=== PATIENT | female | born 1995 | race Two or more races ===

== ENCOUNTER 2023-03-30 18:14 | Emergency (ER) | payer OTHER ==
[~2023-03-30] VITALS: Ht 167.6 cm; Wt 99.8 kg
[2023-03-30] MEDS ORDERED: NIFEDIPINE ER30 MG PO (19:42)
[2023-03-30 23:15] LABS: HEMATOCRIT 40.3 % (36.0-45.00); HEMOGLOBIN 13.7 g/dL (12.0-15.00); MEAN CELL VOLUME 87.2 fL (80.00-100.00); MEAN CORPUSCULAR HEMOGLOBIN 29.7 pg (27.00-32.0); PLATELET COUNT 285 K/uL (150-450); RED BLOOD COUNT 4.62 M/uL (4.00-6.00); RED CELL DISTRIBUTION WIDTH 13.8 % (11.5-14.5)
[2023-03-30 23:17] LABS: URINE APPEARANCE Clear; URINE BILIRRUBIN Negative (NEGATIVE); URINE BLOOD Negative; URINE COLOR Yellow; URINE GLUCOSE Negative (NEGATIVE); URINE LEUKOCYTE Negative; URINE NITRATE Negative; URINE PROTEIN Negative (NEGATIVE); URINE UROBILINOGEN 0.2 E.U./dl
[2023-03-30 23:21] LABS: URINE EPITHELIAL CELLS 3.6 uL (0.0-38.8); URINE RBC 12.3 uL (0.0-20.8)
[2023-03-30 23:31] LABS: URINE WBC 1.3 uL (0.0-23.2)
[2023-03-30 23:32] LABS: INR 0.98; PARTIAL THROMBOPLASTIN TIME 30.1 SECONDS (22.0-34.0); PROTHROMBIN TIME 10.3 SECONDS (9.0-11.5)
[2023-03-31] LABS: CALCIUM 9.2 mg/dL (8.5-10.1); CREATININE SERUM 0.6 mg/dL (0.55-1.02); GFR 119.04; POTASSIUM 3.58 mEq/L (3.5-5.1)
== END 2023-03-31 00:17 | disposition home or self-care (01) ==
LOC: ER 18:15
PROVIDERS: General Practice
DX: O20.9 Hemorrhage in early pregnancy, unspecified (principal); Z3A.01 Less than 8 weeks gestation of pregnancy; Z91.018 Allergy to other foods

== ENCOUNTER 2023-04-29 12:58 | Outpatient (CLI) | payer OTHER ==
[~2023-04-29 12:58] MED LIST: NIFEDIPINE ER30 MG PO
== END 2023-04-29 12:59 | disposition home or self-care (01) ==
LOC: PRENATAL 12:58
PROVIDERS: ATTEND Obstetrics & Gynecology Maternal & Fetal Medicine
DX: O36.80X0 Pregnancy with inconclusive fetal viability, not applicable or unspecified (principal); Z36.82 Encounter for antenatal screening for nuchal translucency; Z36.9 Encounter for antenatal screening, unspecified; O10.019 Pre-existing essential hypertension complicating pregnancy, unspecified trimester; O99.210 Obesity complicating pregnancy, unspecified trimester; Z3A.11 11 weeks gestation of pregnancy

== ENCOUNTER → 2023-07-06 08:12 | Outpatient (CLI) | payer OTHER | END | disposition home or self-care (01) | LOC: PRENATAL 08:12 | PROVIDERS: ATTEND Obstetrics & Gynecology Maternal & Fetal Medicine | DX: O35.3XX0 Maternal care for (suspected) damage to fetus from viral disease in mother, not applicable or unspecified (principal); O44.00 Complete placenta previa NOS or without hemorrhage, unspecified trimester; O10.019 Pre-existing essential hypertension complicating pregnancy, unspecified trimester; O99.210 Obesity complicating pregnancy, unspecified trimester; Z3A.20 20 weeks gestation of pregnancy ==

== ENCOUNTER → 2023-09-28 09:56 | Outpatient (CLI) | payer OTHER ==
[~2023-09-28 09:56] MED LIST changes: +LABETALOL HCL100 MG PO; +PRENATABS FA T1 EACH PO; +VAZALORE81 MG PO
== END | disposition home or self-care (01) ==
LOC: PRENATAL 09:56
PROVIDERS: ATTEND Obstetrics & Gynecology Maternal & Fetal Medicine
DX: O26.843 Uterine size-date discrepancy, third trimester (principal); O36.8130 Decreased fetal movements, third trimester, not applicable or unspecified; O99.213 Obesity complicating pregnancy, third trimester; O16.3 Unspecified maternal hypertension, third trimester; Z3A.32 32 weeks gestation of pregnancy

== ENCOUNTER → 2023-10-26 09:14 | Outpatient (CLI) | payer OTHER | END | disposition home or self-care (01) | LOC: PRENATAL 09:14 | PROVIDERS: ATTEND Obstetrics & Gynecology Maternal & Fetal Medicine | DX: O26.849 Uterine size-date discrepancy, unspecified trimester (principal); O36.0199 Maternal care for anti-D [Rh] antibodies, unspecified trimester, other fetus; O10.019 Pre-existing essential hypertension complicating pregnancy, unspecified trimester; O99.210 Obesity complicating pregnancy, unspecified trimester; Z3A.36 36 weeks gestation of pregnancy ==

== ENCOUNTER 2023-10-28 16:16 | Inpatient (IN) | payer OTHER ==
[~2023-10-28] VITALS: Ht 170.2 cm; Wt 2.7 kg
[2023-10-28 17:53] LABS: HEMATOCRIT 35.9 % (36.0-45.00); HEMOGLOBIN 12.5 g/dL (12.0-15.00); MEAN CELL VOLUME 85.7 fL (80.00-100.00); MEAN CORPUSCULAR HEMOGLOBIN 29.8 pg (27.00-32.0); MEAN CORPUSCULAR HGB CONC 34.7 g/dl (32.0-36.0); PLATELET COUNT 223 K/uL (150-450); RED BLOOD COUNT 4.19 M/uL (4.00-6.00); RED CELL DISTRIBUTION WIDTH 14.7 % (11.5-14.5)
[2023-10-28 18:02] LABS: PH,URINE 5.5 (5.0-8.0); URINE APPEARANCE Clear; URINE BILIRRUBIN Negative (NEGATIVE); URINE BLOOD Negative; URINE COLOR Dark Yellow; URINE GLUCOSE Negative (NEGATIVE); URINE KETONE Trace (NEGATIVE); URINE LEUKOCYTE Trace; URINE NITRATE Negative; URINE PROTEIN Trace (NEGATIVE)
[2023-10-28 18:03] LABS: URINE BACTERIA 1591.1 uL (0.0-1933); URINE EPITHELIAL CELLS 36.3 uL (0.0-38.8); URINE RBC 20.3 uL (0.0-20.8); URINE WBC 19.4 uL (0.0-23.2)
[2023-10-28 18:08] LABS: URINE CAST 0.15 uL (0.0-1.40)
[2023-10-28 18:10] LABS: INR < 0.93; PARTIAL THROMBOPLASTIN TIME 26.9 SECONDS (22.0-34.0); PROTHROMBIN TIME 9.6 SECONDS (9.0-11.5)
[2023-10-28] MEDS ORDERED: NIFEDIPINE20 MG PO (18:15)
[2023-10-28] MEDS ORDERED: VALTREX1000 MG PO (18:15)
[2023-10-28 18:26] LABS: ALBUMIN 2.7 gm/dL (3.4-5.0); BILIRUBIN TOTAL 0.29 mg/dL (0.3-1.2); CALCIUM 9.4 mg/dL (8.5-10.1); CREATININE SERUM 0.53 mg/dL (0.55-1.02); GFR 136.38; GLOBULINA 3.8 G/DL (2.4-3.5); POTASSIUM 4.31 mEq/L (3.5-5.1); TOTAL PROTEIN 6.5 gm/dL (6.4-8.2)
[2023-10-28] MEDS ORDERED: RINGERS SOLUTION,LACTATED 1,000 ML IV SCH (18:30)
[2023-10-28] MEDS ORDERED: MISOPROSTOL 25 MCG/4 ML GEL.W.APPL VAG ONE (20:00)
[2023-10-29] MEDS ORDERED: OXYTOCIN 500 ML IV SCH (07:15)
[2023-10-29] MEDS ORDERED: PROMETHAZINE HCL 50 MG/ML AMPUL IM ONE (17:15)
[2023-10-29] MEDS ORDERED: MEPERIDINE HCL/PF 50 MG/ML VIAL IV ONE (17:15)
[2023-10-29] MEDS ORDERED: CEFOXITIN SODIUM 2,000 MG VIAL IV NR (19:15)
[2023-10-29] MEDS ORDERED: OXYTOCIN 1,000 ML IV SCH (21:15)
[2023-10-29] MEDS ORDERED: MEPERIDINE HCL/PF 50 MG/ML VIAL IM PRN (21:15)
[2023-10-29] MEDS ORDERED: METHYLERGONOVINE MALEATE 0.2 MG/ML AMPUL IM ONE (21:30)
[2023-10-29] MEDS ORDERED: ERYTHROMYCIN BASE 1 GM TUBE OP ONE (21:30)
[2023-10-29] MEDS ORDERED: OXYTOCIN 10 UNITS/ML VIAL IV ONE (21:30)
[2023-10-30] MEDS ORDERED: PROMETHAZINE HCL 50 MG/ML AMPUL IM PRN
[2023-10-30 02:43] LABS: HEMATOCRIT 35.1 % (36.0-45.00); HEMOGLOBIN 11.8 g/dL (12.0-15.00); MEAN CELL VOLUME 87.1 fL (80.00-100.00); MEAN CORPUSCULAR HEMOGLOBIN 29.2 pg (27.00-32.0); MEAN CORPUSCULAR HGB CONC 33.5 g/dl (32.0-36.0); PLATELET COUNT 206 K/uL (150-450); RED BLOOD COUNT 4.03 M/uL (4.00-6.00); RED CELL DISTRIBUTION WIDTH 14.3 % (11.5-14.5)
[2023-10-30] MEDS ORDERED: SIMETHICONE 125 MG CAPSULE PO SCH (09:00)
[2023-10-30] MEDS ORDERED: NAPROXEN 500 MG TABLET PO SCH (09:08)
[2023-10-30] MEDS ORDERED: ACETAMINOPHEN WITH CODEINE 1 UDTAB TABLET PO PRN (09:15)
[2023-11-01] MEDS ORDERED: Tylenol #3 PO (12:08)
[2023-11-01] MEDS ORDERED: NAPR500T14 PO (12:08)
== END 2023-11-01 13:36 | disposition home or self-care (01) | DRG 788 ==
LOC: LDR 16:16 → OB/GYN 10-29 21:08
PROVIDERS: ADMIT Obstetrics & Gynecology; ATTEND Obstetrics & Gynecology
PROC: 3E0P7VZ Introduction of Hormone into Female Reproductive, Via Natural or Artificial Opening (ICD-10-PCS; 2023-10-28)
PROC: 4A1HXCZ Monitoring of Products of Conception, Cardiac Rate, External Approach (ICD-10-PCS; 2023-10-28)
PROC: 3E033VJ Introduction of Other Hormone into Peripheral Vein, Percutaneous Approach (ICD-10-PCS; 2023-10-29)
PROC: 10D00Z1 Extraction of Products of Conception, Low, Open Approach (ICD-10-PCS; principal; 2023-10-29 20:15)
DX: O82 Encounter for cesarean delivery without indication (principal); O62.1 Secondary uterine inertia; Z3A.37 37 weeks gestation of pregnancy; Z37.0 Single live birth; Z20.822 Contact with and (suspected) exposure to COVID-19